=== PATIENT | female | born 1985 | race Caucasian/White ===

== ENCOUNTER 2017-03-15 15:19 | Emergency (ER) | payer OTHER ==
[~2017-03-15] VITALS: Ht 172.7 cm; Wt 57.0 kg
[~2017-03-15 15:19] MED LIST: PERC5TAB12 PO
[2017-03-15 15:21] VITALS: BP 123/76; PULSE 114; RESP 20; TEMP 97.6; O2SAT 100
[2017-03-15] MEDS ORDERED: PROG200C PO (15:45)
--- NOTE | 2017-03-15 15:55 | PD ---
HPI Chief Complaint: Related Problem Time Seen by Provider: 15:45 Travel History International Travel<30 days: No Contact w/Intl Traveler<30days: No Traveled to known affect area: No History of Present Illness HPI 31-year-old female presents for evaluation of vaginal bleeding. The past 3 weeks she has been having light occasional vaginal spotting. She reports she had an outpatient ultrasound through her eyeglass frames inspector Dr. Chapa one week ago and this revealed an intrauterine at approximately 6 weeks' gestational age, heart tones were visible. She was started on progesterone. She reports that today she had heavy vaginal bleeding starting at 1 PM and this prompted evaluation. She endorses some cramping sensation in her lower back, pelvis as well. She endorses some nausea. She has a history of one incomplete last year which required D&C. Denies fevers, chills , dysuria, flank pain. No other complaints. PFSH Past Medical History Cancer: No Cardiovascular Problems: No Hepatitis: No Musculoskeletal: No Neurologic: No Psychiatric: Yes ?: Social History Alcohol Use: No Tobacco Use: No Substance Use: No Allergies-Medications (Allergen,Severity, Reaction): Coded Allergies: No Known Allergies (Unverified , 03/15/17) Reported Meds & Prescriptions Reported Meds & Active Scripts Active Tylenol-Codeine #3 (Acetaminophen-Codeine) 300-30 mg Tab 1 Tab PO Q4H PRN Zofran (Ondansetron HCl) 4 Mg Tab 4 Mg PO Q6HR PRN Reported Progesterone Micronized 200 Mg Cap 200 Mg PO HS Review of Systems Except as stated in HPI: all other systems reviewed are Neg Physical Exam Narrative GENERAL: Well-developed well-nourished female in no acute distress SKIN: Warm and dry. HEAD: Atraumatic. Normocephalic. EYES: Pupils equal and round. No scleral icterus. No injection or drainage. ENT: No nasal bleeding or discharge. Mucous membranes pink and moist. NECK: Trachea midline. No JVD. CARDIOVASCULAR: Regular rate and rhythm. No murmur appreciated. RESPIRATORY: No accessory muscle use. Clear to auscultation. Breath sounds equal bilaterally. GASTROINTESTINAL: Abdomen soft, mild suprapubic tenderness without guarding. Pelvic examination performed in the presence of female nurse: Blood, clots noted in the cervical canal. The cervical os is open with some clots noted at the opening of the os. MUSCULOSKELETAL: No obvious deformities. No edema. NEUROLOGICAL: Awake and alert. No obvious cranial nerve deficits. Motor grossly within normal limits. Normal speech. PSYCHIATRIC: Anxious, tearful Data Data Last Documented VS Vital Signs Date Time Temp Pulse Resp B/P Pulse Ox O2 Delivery O2 Flow Rate FiO2 03/15/17 17:53 86 16 111/68 100 Room Air 03/15/17 15:21 97.6 Orders Beta Hcg (Quant/Titer) (03/15/17 15:52) Complete Blood Count With Diff (03/15/17 15:52) Basic Metabolic Panel (Bmp) (03/15/17 15:52) Ed Poc Ultrasound (03/15/17 15:52) Us Pelvis (Ques Pr/Ect)W Trans (03/15/17 ) Misoprostol (Cytotec) (03/15/17 20:00) Acetamin-Codeine 300-30 Mg (Tylenol-Code (03/15/17 20:00) Labs Laboratory Tests Test 03/15/17 15:59 White Blood Count 8.2 TH/MM3 Red Blood Count 4.01 MIL/MM3 Hemoglobin 12.3 GM/DL Hematocrit 36.9 % Mean Corpuscular Volume 91.9 FL Mean Corpuscular Hemoglobin 30.6 PG Mean Corpuscular Hemoglobin 33.3 % Concent Red Cell Distribution Width 12.9 % Platelet Count 275 TH/MM3 Mean Platelet Volume 7.1 FL Neutrophils (%) (Auto) 79.2 % Lymphocytes (%) (Auto) 13.8 % Monocytes (%) (Auto) 5.6 % Eosinophils (%) (Auto) 1.2 % Basophils (%) (Auto) 0.2 % Neutrophils # (Auto) 6.5 TH/MM3 Lymphocytes # (Auto) 1.1 TH/MM3 Monocytes # (Auto) 0.5 TH/MM3 Eosinophils # (Auto) 0.1 TH/MM3 Basophils # (Auto) 0.0 TH/MM3 CBC Comment DIFF FINAL Differential Comment Sodium Level 138 MEQ/L Potassium Level 3.7 MEQ/L Chloride Level 104 MEQ/L Carbon Dioxide Level 27.7 MEQ/L Anion Gap 6 MEQ/L Blood Urea Nitrogen 7 MG/DL Creatinine 0.55 MG/DL Estimat Glomerular Filtration 131 ML/MIN Rate Random Glucose 127 MG/DL Calcium Level 8.2 MG/DL Human Chorionic Gonadotropin, 7357 MIU/ML Quant MDM Medical Decision Making Medical Screen Exam Complete: Yes Emergency Medical Condition: Yes Medical Record Reviewed: Yes Differential Diagnosis Threatened , incomplete , missed , completed torsion, ectopic, intrauterine Narrative Course 31 year old female who is 7 weeks based on ultrasound performed [address] Chapa's office and revealed heart tones according to the patient. She presents with light spotting for the past 3 weeks now with significant vaginal bleeding for the past 3 hours associated with pelvic and lower back cramping sensation. Her blood type is documented as O+ and therefore no RhoGAM will be administered. Lab work and ultrasound results have been reviewed. Her ultrasound reveals no evidence of intrauterine , head or old community of the endometrial stripe representing an in progress. her examination is consistent with an incomplete with an open cervical os with some clots noted in the vaginal canal during pelvic examination. The bleeding did slow down during her hospital stay. I discussed with the patient's eyeglass frames inspector Dr. Chapa who also discussed with the patient. She recommends Cytotec 600 g once today, prescription for pain medication, she plans on following up with her as an outpatient tomorrow. The patient stable for discharge. Diagnosis Primary Impression: Incomplete Referrals: Health Researcher Additional Instructions: Follow-up with your eyeglass frames inspector Dr. Chapa tomorrow, call her office to make an appointment. Medication as needed. Return for any acutely new or worsening symptoms. Med/Other Pt SpecificInfo: Prescription(s) given Scripts Acetaminophen-Codeine (Tylenol-Codeine #3)300-30 mg Tab1 Tab PO Q4H PRN (PAIN) # 20 TAB Ref 0 Prov:Nellie Cordova DO 03/15/17 Ondansetron (Zofran)4 Mg Tab4 Mg PO Q6HR PRN (NAUSEA OR VOMITING) #20 TAB Ref 0 Prov:Hever Bhatia MD 03/15/17 Disposition: 01 DISCHARGE HOME Condition: Stable John Lima March 15, 2017 15:55
[2017-03-15 16:31] LABS: AUTOMATED NEUTROPHIL # 6.5 TH/MM3 (1.8-7.7); BASOPHIL % 0.2 % (0.0-2.0); EOSINOPHIL # 0.1 TH/MM3 (0-0.4); EOSINOPHIL % 1.2 % (0.0-4.0); HEMATOCRIT 36.9 % (35.0-46.0); HEMO FLAGS DIFF FINAL; LYMPH % 13.8 % (9.0-44.0); LYMPHOCYTE # 1.1 TH/MM3 (1.0-4.8); MEAN CELL VOLUME 91.9 FL (80.0-100.0); MEAN CORPUSCULAR HEMOGLOBIN 30.6 PG (27.0-34.0); MEAN CORPUSCULAR HGB CONC 33.3 % (32.0-36.0); MONO % 5.6 % (0.0-8.0); NEUT % 79.2 % (16.0-70.0); PLATELET COUNT 275 TH/MM3 (150-450); RED BLOOD COUNT 4.01 MIL/MM3 (4.00-5.30); RED CELL DISTRIBUTION WIDTH 12.9 % (11.6-17.2); WHITE BLOOD COUNT 8.2 TH/MM3 (4.0-11.0)
--- NOTE | 2017-03-15 16:46 | PD ---
Data Data Last Documented VS Vital Signs Date Time Temp Pulse Resp B/P Pulse Ox O2 Delivery O2 Flow Rate FiO2 03/15/17 15:21 97.6 114 20 123/76 100 Room Air Orders Beta Hcg (Quant/Titer) (03/15/17 15:52) Complete Blood Count With Diff (03/15/17 15:52) Basic Metabolic Panel (Bmp) (03/15/17 15:52) Ed Poc Ultrasound (03/15/17 15:52) Us Pelvis (Ques Pr/Ect)W Trans (03/15/17 ) Labs Laboratory Tests Test 03/15/17 15:59 White Blood Count 8.2 TH/MM3 Red Blood Count 4.01 MIL/MM3 Hemoglobin 12.3 GM/DL Hematocrit 36.9 % Mean Corpuscular Volume 91.9 FL Mean Corpuscular Hemoglobin 30.6 PG Mean Corpuscular Hemoglobin 33.3 % Concent Red Cell Distribution Width 12.9 % Platelet Count 275 TH/MM3 Mean Platelet Volume 7.1 FL Neutrophils (%) (Auto) 79.2 % Lymphocytes (%) (Auto) 13.8 % Monocytes (%) (Auto) 5.6 % Eosinophils (%) (Auto) 1.2 % Basophils (%) (Auto) 0.2 % Neutrophils # (Auto) 6.5 TH/MM3 Lymphocytes # (Auto) 1.1 TH/MM3 Monocytes # (Auto) 0.5 TH/MM3 Eosinophils # (Auto) 0.1 TH/MM3 Basophils # (Auto) 0.0 TH/MM3 CBC Comment DIFF FINAL Differential Comment MDM Supervised Visit with DASH: Yes Narrative Course The history, exam, and medical decision-making in the associated mid-level provider note were completed with my assistance. I reviewed and agree with the findings presented. I attest that I had a [id number] encounter with the patient on the same day, and personally performed and documented my assessment and findings in the medical record. *My assessment and Findings: 31 year-old woman, first trimester bleeding. Heavy bright red blood. Previous ultrasound done in Dr. Chapa's office showed IUP. Current transabdominal bedside ultrasound does not show anything in the uterus and shows copious complex fluid in the vagina consistent with heavy vaginal bleeding. We'll check labs, hCG, formal ultrasound. She had a history of a missed AB requiring D&C and was given a shot of medicine for the bleeding. We'll monitor her in the emergency department to follow some bleeding. Hever Bhatia MD March 15, 2017 16:45
[2017-03-15 17:01] LABS: BICARBONATE 27.7 MEQ/L (21.0-32.0); POTASSIUM 3.7 MEQ/L (3.5-5.1)
[2017-03-15 17:53] VITALS: BP 111/68; PULSE 86; RESP 16; O2SAT 100
--- NOTE | 2017-03-15 19:17 | RADRPT ---
EXAM DATE/TIME: 03/15/2017 18:10 [facility] COMPARISON: No previous studies available for comparison. INDICATIONS : Pevlic pain and bleeding. LAB(S): Beta-hC,357 MEDICAL HISTORY : . Hypertension. SURGICAL HISTORY : D&C. ENCOUNTER: Initial ACUITY: 3 weeks PAIN SCORE: 8/10 LOCATION: Bilateral pelvis MEASUREMENTS: UTERUS: 9.5 x 5.7 x 4.8 cm ENDOMETRIAL STRIPE: 19 mm RIGHT OVARY: 2.5 x 1.8 x 2.9 cm LEFT OVARY: 1.3 x 1.9 x 3.1 cm FREE FLUID: Yes posterior cul de sac CROWN RUMP LENGTH: Nonvisualized = WKS DAYS FHR: Nonvisualized BPM FINDINGS: UTERUS: The myometrium has homogeneous echotexture without mass. Endometrial stripe has a heterogeneous appe arance but there is no identifiable gestational sac despite the elevated beta hCG. RIGHT OVARY: Ovary contains no mass or significant cystic lesion. LEFT OVARY: Ovary contains no mass or significant cystic lesion. MISCELLANEOUS: Trace free fluid in the posterior cul-de-sac. CONCLUSION: 1. No IUP identified despite the positive beta hCG. 2. Heterogeneity of the endometrial stripe. This may represent an in progress. 3. Trace free fluid in the cul-de-sac. Both ovaries are sonographically normal. Polo Brown MD on March 15, 2017 at 19:10 Board Certified Radiologist. This report was verified electronically.
[2017-03-15] MEDS ORDERED: ZOFR4TAB PO (19:57)
[2017-03-15] MEDS ORDERED: TYLETAB34 PO ×2 (19:57→19:59)
[2017-03-15] MEDS ORDERED: ACETAMINOPHEN/CODEINE 300 MG/30 MG TAB PO ONE (20:00)
[2017-03-15] MEDS ORDERED: MISOPROSTOL 200 MCG TAB PO ONE (20:00)
== END 2017-03-15 21:04 | disposition home or self-care (01) ==
LOC: NEPD 15:19
DX: O03.4 Incomplete spontaneous abortion without complication (principal)
CPT/HCPCS: 76700; 76817; 80048; 84702; 85025; 99284